=== PATIENT | female | born 1965 | race Caucasian/White ===

== ENCOUNTER 2024-03-14 15:31 | Observation (INO) | payer OTHER ==
[2024-03-14] MEDS ORDERED: Ondansetron PF 4 MG/2 ML Vial IVP PRN (18:16)
[2024-03-14] MEDS ORDERED: Morphine 2 MG/ML VIAL SLOW IVP PRN (18:16)
[2024-03-14] MEDS ORDERED: Ipratropium/Albuterol 3 ML NEB NEB PRN (18:16)
[2024-03-14] MEDS ORDERED: hydrOXYzine Pamoate 25 mg Capsule PO PRN (18:32)
[2024-03-14] MEDS ORDERED: Doxepin HCl 10 MG CAP PO PRN (18:32)
[2024-03-14] MEDS ORDERED: Acetaminophen/Codeine 30-300mg Tablet PO PRN (18:35)
[2024-03-14] MEDS: Sodium Chloride 0.9% 1,000 ML IV SCH (20:07)
[2024-03-14] MEDS: Morphine 2 MG/ML VIAL SLOW IVP PRN (20:15)
[2024-03-14] MEDS: Atorvastatin Calcium 40 MG TAB PO SCH (20:17)
[2024-03-14] MEDS: Gabapentin 300 MG CAP PO SCH (20:18)
[2024-03-14] MEDS: lamoTRIgine 100 MG TAB PO SCH (20:19)
[2024-03-14] MEDS: Famotidine/PF 20 mg/2ml Vial SLOW IVP SCH (20:19)
[2024-03-14 22:55] VITALS: BMI 41.5
[2024-03-15] MEDS: Acetaminophen 325 MG TAB PO SCH (00:24)
[2024-03-15] MEDS: Acetaminophen/Codeine 30-300mg Tablet PO PRN (06:22)
[2024-03-15 06:31] LABS: #Basophils 0.07 10x3/uL (0.0-0.2); %Basophils 0.9 % (0.0-1.0); %Lymphocytes 28.6 % (21.0-51.0); %Monocytes 10.3 % (0.0-10.0); %Neutrophils 57.7 % (42.0-75.0); Hemoglobin 12.8 g/dL (12.0-16.0); Mean Corpuscular HGB CONC 32.8 g/dL (32.0-36.0); Mean Corpuscular Hemoglobin 29.8 pg (27.0-31.0); Mean Corpuscular Volume 90.7 fL (78.0-98.0); Mean Platelet Volume 9.8 fL (7.4-10.4); Platelet Count 222 10x3/uL (130-400); RBC Distribution Width 13.3 % (11.5-14.5)
[2024-03-15 06:46] LABS: Anion Gap 13 mmol/L (10-20); BUN (Urea Nitrogen) 11 mg/dL (9.8-20.1); Calc. Creatinine Clearance 97 mL/min (70-130); Calcium 9.1 mg/dL (7.8-10.44); Carbon Dioxide 20 mmol/L (22-29); Chloride 108 mmol/L (98-107); Estimated GFR 69; Glucose 171 mg/dL (70-105); INR-International Normal Ratio 1.3; PTT 29.2 sec (22.9-36.1); Potassium 3.7 mmol/L (3.5-5.1); Prothrombin Time 15.9 sec (12.0-14.7); Sodium 137 mmol/L (136-145)
[2024-03-15] MEDS ORDERED: Venlafaxine HCl XR 75 MG CAP PO SCH (09:00)
[2024-03-15] MEDS: Pantoprazole DR 40 MG TAB PO SCH (09:06)
[2024-03-15] MEDS: Losartan 25 MG TAB PO SCH (09:06)
[2024-03-15] MEDS: lamoTRIgine 100 MG TAB PO SCH (09:07)
[2024-03-15 11:20] VITALS: TEMP 98.4
[2024-03-15 12:19] VITALS: BP 108/61
== END 2024-03-15 14:38 | disposition home or self-care (01) ==
LOC: SURG B 17:48
PROVIDERS: ADMIT Surgery; ATTEND Surgery
DX: S06.6XAA Traumatic subarachnoid hemorrhage with loss of consciousness status unknown, initial encounter (principal); S06.5X9A Traumatic subdural hemorrhage with loss of consciousness of unspecified duration, initial encounter; I10 Essential (primary) hypertension; E11.9 Type 2 diabetes mellitus without complications; E78.5 Hyperlipidemia, unspecified; J45.909 Unspecified asthma, uncomplicated; Z79.82 Long term (current) use of aspirin; Z79.899 Other long term (current) drug therapy; V89.2XXA Person injured in unspecified motor-vehicle accident, traffic, initial encounter
CPT/HCPCS: 36415; 36416; 70450; 80048; 85025; 85610; 85730; G0378; G0390; J2272; J3490; J7030